=== PATIENT | male | born 1940 | race Caucasian/White ===

== ENCOUNTER → 2017-11-15 13:30 | Outpatient (CLI) | payer MEDICARE, OTHER, SELFPAY ==
[2017-11-18 09:42] LABS: HSV 2 IgG < 0.91 index (0.00-0.90); V-Zoster IgG (Immunity) 1884 index (Immune >165)
== END ==
PROVIDERS: Visit Provider Dermatology Pediatric Dermatology
DX: L08.9 Local infection of the skin and subcutaneous tissue, unspecified (principal)
CPT/HCPCS: 36415; 86695; 86696; 86787